=== PATIENT | male | born 1980 | race Caucasian/White ===

== ENCOUNTER → 2018-06-10 10:50 | Outpatient (CLI) | payer OTHER, SELFPAY ==
[2018-06-10 11:38] LABS: Add Manual Diff / Slide Review NO; Basophils Percent Auto 0.5 % (0-2); Eosinophils Percent Auto 1.5 % (2-4); Hematocrit 50.7 % (41-53); Hemoglobin 17.8 g/dL (13.5-17.5); Lymphocytes Percent Auto 35.6 % (25-40); Mean Corpuscular HGB Conc 35.2 % (30-36); Mean Corpuscular Volume 88.2 fL (80-100); Monocytes Percent Auto 5.3 % (3-14); Neutrophils Absolute Auto 6500 /uL (3000-5900); Neutrophils Percent Auto 57.1 % (50-75); Platelet Count 185 X10^3/uL (150-400); Red Blood Cell Count 5.75 X10^6/uL (4.5-5.9); Red Cell Distribution Width 13.6 % (11.6-14.8); White Blood Cell Count 11.4 X10^3/uL (4.5-11.0)
[2018-06-10 11:55] LABS: Alanine Aminotransferase 100 IU/L (21-72); Albumin 4.8 g/dL (3.5-5.0); Albumin Globulin Ratio 1.5 (1.0-2.8); Alkaline Phosphatase 50 U/L (38-126); Aspartate Aminotransferase 61 IU/L (17-59); BUN Creatinine Ratio 21.7 (6-22); Bilirubin Total 0.7 mg/dL (0.2-1.3); Blood Urea Nitrogen 13 mg/dL (9-20); Calcium 9.5 mg/dL (8.4-10.2); Carbon Dioxide 25 mmol/L (22-32); Chloride 102 mmol/L (98-107); Cholesterol 226 mg/dL (140-199); Estimated Glomerular Filt Rate > 60.0 mL/min (>60); Globulin 3.3 g/dL (1.7-4.1); Glucose 177 mg/dL (70-100); HDL Cholesterol 32 mg/dL (40-60); Sodium 141 mmol/L (137-145); Total Protein 8.1 g/dL (6.3-8.2)
[2018-06-10 11:59] LABS: Hemoglobin A1C% w Est Avg Glu 8.7 % (4.0-6.0)
[2018-06-10 12:11] LABS: HEMOLYSIS 67 (0-50)
[2018-06-10 12:12] LABS: Potassium 4.3 mmol/L (3.4-5.1); Triglycerides 540 mg/dL (35-150)
[2018-06-10 13:50] LABS: Thyroid Stimulating Hormone 3.47 uIU/mL (0.47-4.68)
[2018-06-10 14:56] LABS: Creatinine Urine Random 154.8 mg/dL
[2018-06-10 15:37] LABS: Microalbumi Creatinin Ratio Ur 489.6 ug/mg CR (<30); Microalbumin Urine Random 75.8 mg/dL (0-1.6)
== END ==
PROVIDERS: PCP Family Medicine; Visit Provider Family Medicine
DX: E11.9 Type 2 diabetes mellitus without complications (principal); E66.01 Morbid (severe) obesity due to excess calories; E78.1 Pure hyperglyceridemia
CPT/HCPCS: 36415; 80053; 80061; 82043; 82570; 83036; 84443; 85025

== ENCOUNTER 2018-12-17 04:53 | Emergency (ER) | payer OTHER, SELFPAY ==
[2018-12-17 04:59] VITALS: BP 146/98; PULSE 100; RESP 18; TEMP 36.5; O2SAT 96; BMI 35.9
--- NOTE | 2018-12-17 05:01 | DI.RAD.S_ITS ---
PROCEDURE: XR HAND RT MIN 3V INDICATIONS: Right ring finger pain after injury TECHNIQUE: 3 views of the right hand acquired. COMPARISON: [facility], , HAND 3V RIGHT, 01/29/2014, 0:42. FINDINGS: Bones: There is a minimally displaced fracture in the 4th distal phalanx. No dislocations. Carpal bones are normally aligned. No suspicious bony lesions. Soft tissues: No suspicious soft tissue calcifications. IMPRESSION: 1. Minimally displaced fracture of the 4th distal phalanx. Dictated by: Bhupendra Rosenberg M.D. on 12/17/2018 at 8:58 Approved by: Bhupendra Rosenberg M.D. on 12/17/2018 at 8:59
--- NOTE | 2018-12-17 05:02 | ED.UPPEXIN ---
HPI - Extremity Injury (Upper) General Chief Complaint: Extremity Injury, Upper Stated Complaint: right ring finger injury slammed in car door Time Seen by Provider: 12/17/18 05:01 Source: patient Mode of arrival: ambulatory Limitations: no limitations History of Present Illness HPI narrative: 38-year-old [id number]-[id number] male here for evaluation of a crush injury to his right ring finger. Patient states that he showed it in the car door just prior to arrival. No other injury reported from the event. No interventions prior to arrival. Related Data Previous Rx's Medication Instructions Recorded [ONE TOUCH ULTRA TEST] str TID #100 09/12/17 Glucose: Home Monitoring Kit kit QDAY #1 09/16/17 Lancet: Device ea #100 09/16/17 Test Strips - Freestyle str #90 09/16/17 metformin 1,000 mg PO BIDCC #180 tab 11/14/17 atomoxetine 25 mg capsule 25 mg PO DAILY #30 cap 06/12/18 glipizide 10 mg tablet 10 mg PO BID #30 tab 06/12/18 sildenafil (antihypertensive) 20 20 mg PO DAILY #30 tab 06/12/18 mg tablet hydroxyzine HCl 25 mg tablet 25 mg PO BEDTIME PRN #30 tab 09/05/18 pregabalin 200 mg capsule 200 mg PO TID #90 cap 09/30/18 Allergies Allergy/AdvReac Type Severity Reaction Status Date / Time No Known Allergies Allergy Uncoded 10/23/18 09:59 Review of Systems Constitutional Denies fatigue Musculoskeletal Denies tingling Comments: Right ring finger pain Integumentary/Breasts Comments: Bruising to the pad of the right ring finger Neurologic Denies tingling Endocrine Denies fatigue Hematologic/Lymphatic Denies easy bleeding and Denies easy bruising [facility] Medical History Chronic back pain (Chronic ~2009) Foot pain (Chronic ~2004) Sciatic nerve disease (Chronic ~2009) Sleep apnea (Chronic ~1999) Chicken pox (Resolved ~1986) Fractures (Resolved ~1991) Social History marital status: household members: spouse and children Smoking Status: Current every day smoker alcohol intake: current (ON OCCASION ) substance use type: does not use Exam Initial Vital Signs Initial Vital Signs: Vital Signs Temperature 97.7 F 12/17/18 04:59 Pulse Rate 100 H 12/17/18 04:59 Respiratory Rate 18 12/17/18 04:59 Blood Pressure 146/98 H 12/17/18 04:59 Pulse Oximetry 96 12/17/18 04:59 Const General: cooperative, well developed, well groomed and No acute distress Orientation: alert and awake Cardio Pulses: radial pulses present on the right Skin Other: Patient with a hematoma on the pad of his right index finger Neuro Other: Sensation intact to light touch right hand Extrem General: capillary refill normal Procedures Orthopedic Splinting/Casting Injury #1: Side: right Upper Extremity Injury Location: finger Upper Extremity Immobilizer: aluminum form splint Post splinting neuro exam: no change Post splinting vascular exam: no change Placed by: Nursing Course Orders Ordered: ED Orders 12/17/18 05:01 XR hand RT min 3V Stat Discontinued Medications Acetaminophen/Codeine Phosphate (Tylenol #3 Prepack) 1 bottle MISC SEEINSTR ONE Stop: 12/17/18 05:36 Last Admin: 12/17/18 05:41 Dose: 1 bottle Vital Signs - 8 hr 12/17/18 04:59 Temperature 97.7 F Pulse Rate 100 H Respiratory Rate 18 Blood Pressure 146/98 H Pulse Oximetry 96 MDM - Extremity Injury (Upper) Imaging Data Right hand x-ray: Attestation: I personally reviewed and interpreted this imaging study as follows: My impression: Distal right ring finger phalanx fracture MDM Narrative Medical decision making narrative: Patient is neurovascularly intact. Fracture on the x-ray. He is placed in a splint. He was given care instructions return precautions. He expressed understanding and agreement with plan Discharge Plan Departure Patient Disposition: Home Clinical Impression: Finger fracture, right Qualifiers: Encounter type: initial encounter Finger: ring finger Fracture type: closed Phalanx: distal Fracture alignment: nondisplaced Qualified Code(s): S62.664A - Nondisplaced fracture of distal phalanx of right ring finger, initial encounter for closed fracture Discharge Date/Time: 12/17/18 05:40 Interventions: ED Discharge Assessment Last Done: 12/17/18 05:40 Instructions: DI for Finger Fracture Activity Restrictions/Additional Instructions: He did break the very tip of your ring finger. I recommend that you keep the splint on for the next 4 weeks. After that you can take it off. Contact her primary care provider for follow-up. Return to the emergency department for any new or worsening symptoms Prescriptions: No Action [ONE TOUCH ULTRA TEST] TID Qty: 100 RF: 11 Glucose: Home Monitoring Kit QDAY Qty: 1 RF: 0 Lancet: Device Qty: 100 RF: 0 Test Strips - Freestyle Qty: 90 RF: 0 metformin 1,000 MG tablet 1,000 mg PO BIDCC Qty: 180 RF: 3 pregabalin 200 mg capsule 200 mg PO TID Qty: 90 RF: 3 hydroxyzine HCl 25 mg tablet 25 mg PO BEDTIME PRN (Reason: insomnia) Qty: 30 RF: 0 glipizide 10 mg tablet 10 mg PO BID Qty: 30 RF: 3 atomoxetine [Strattera] 25 mg capsule 25 mg PO DAILY Qty: 30 RF: 0 sildenafil (antihypertensive) [Revatio] 20 mg tablet 20 mg PO DAILY Qty: 30 RF: 1 Referrals: Betito Carlton MD [Primary Care Provider] -
[2018-12-17] MEDS: CODEINE/APAP 30/300 PREPACK 1 BOTTLE MISC (05:41)
== END 2018-12-17 05:40 | disposition home or self-care (01) ==
PROVIDERS: Emergency Provider Emergency Medicine; PCP Family Medicine
DX: S62.664A Nondisplaced fracture of distal phalanx of right ring finger, initial encounter for closed fracture (principal); W23.1XXA Caught, crushed, jammed, or pinched between stationary objects, initial encounter
CPT/HCPCS: 29130; 73130; 99282; 99283

== ENCOUNTER → 2019-01-07 11:07 | Outpatient (CLI) | payer OTHER, SELFPAY ==
--- NOTE | 2019-01-07 11:11 | DI.RAD.S_ITS ---
PROCEDURE: XR HAND RT MIN 3V INDICATIONS: follow up fx R ring finger TECHNIQUE: 3 views of the hand(s) acquired. COMPARISON: [facility], CR, XR HAND RT MIN 3V, 12/17/2018, 5:21. FINDINGS: Bones: There is an oblique fracture of the fourth distal phalanx with minimal displacement. The alignment is stable. Carpal bones are normally aligned. No suspicious bony lesions. Soft tissues: No suspicious soft tissue calcifications. IMPRESSION: Minimally displaced oblique fracture of the fourth distal phalanx with stable alignment. Dictated by: Liza Rubi M.D. on 01/07/2019 at 12:01 Approved by: Liza Rubi M.D. on 01/07/2019 at 12:03
== END ==
PROVIDERS: PCP Family Medicine; Visit Provider Family Medicine
DX: S62.634A Displaced fracture of distal phalanx of right ring finger, initial encounter for closed fracture (principal); X58.XXXA Exposure to other specified factors, initial encounter
CPT/HCPCS: 73130

== ENCOUNTER → 2019-06-11 15:49 | Outpatient (CLI) | payer OTHER, SELFPAY ==
[2019-06-11 16:15] LABS: Add Manual Diff / Slide Review NO; Basophils Absolute Auto 100 /uL (0-100); Basophils Percent Auto 0.7 % (0-2); Eosinophils Absolute Auto 200 /uL (0-450); Eosinophils Percent Auto 1.9 % (2-4); Hematocrit 53.4 % (41-53); Hemoglobin 19.1 g/dL (13.5-17.5); Lymphocytes Absolute Auto 3600 /uL (1100-4500); Lymphocytes Percent Auto 34.2 % (25-40); Mean Corpuscular HGB Conc 35.8 % (30-36); Mean Corpuscular Hemoglobin 30.9 PG (26-34); Mean Corpuscular Volume 86.4 fL (80-100); Monocytes Absolute Auto 600 /uL (0-900); Monocytes Percent Auto 5.7 % (3-14); Neutrophils Absolute Auto 6100 /uL (1500-7000); Neutrophils Percent Auto 57.5 % (50-75); Platelet Count 174 X10^3/uL (150-400); Red Blood Cell Count 6.18 X10^6/uL (4.5-5.9); Red Cell Distribution Width 13.3 % (11.6-14.8); White Blood Cell Count 10.6 X10^3/uL (4.5-11.0)
[2019-06-11 16:38] LABS: Hemoglobin A1C% w Est Avg Glu 11.7 % (4.0-6.0)
[2019-06-11 16:45] LABS: Creatinine Urine Random 52.9 mg/dL
[2019-06-11 17:03] LABS: Alanine Aminotransferase 42 IU/L (<50); Albumin 4.6 g/dL (3.5-5.0); Albumin Globulin Ratio 1.6 (1.0-2.8); Alkaline Phosphatase 82 U/L (38-126); Aspartate Aminotransferase 25 IU/L (17-59); BUN Creatinine Ratio 18.3 (6-22); Bilirubin Total 0.8 mg/dL (0.2-1.3); Blood Urea Nitrogen 11 mg/dL (9-20); Calcium 9.1 mg/dL (8.4-10.2); Carbon Dioxide 23 mmol/L (22-32); Chloride 100 mmol/L (98-107); Cholesterol 272 mg/dL (140-199); Estimated Glomerular Filt Rate > 60.0 mL/min (>60); Globulin 2.9 g/dL (1.7-4.1); Glucose 318 mg/dL (70-100); HDL Cholesterol 30 mg/dL (40-60); Potassium 4.2 mmol/L (3.4-5.1); Sodium 135 mmol/L (137-145); Total Protein 7.5 g/dL (6.3-8.2)
[2019-06-11 17:11] LABS: HEMOLYSIS 21 (0-50)
[2019-06-11 17:13] LABS: Triglycerides 1493 mg/dL (35-150)
[2019-06-11 17:19] LABS: Microalbumi Creatinin Ratio Ur 1298.6 ug/mg CR (<30); Microalbumin Urine Random 68.7 mg/dL (0-1.6)
[2019-06-11 17:35] LABS: TSH w/ Reflex to FT4 5.56 uIU/mL (0.47-4.68)
[2019-06-11 18:03] LABS: Free T4, Direct Thyroxine 1.26 ng/dL (0.78-2.19)
== END ==
PROVIDERS: PCP Family Medicine; Visit Provider Family Medicine
DX: E11.9 Type 2 diabetes mellitus without complications (principal); E66.01 Morbid (severe) obesity due to excess calories; E78.1 Pure hyperglyceridemia
CPT/HCPCS: 36415; 80053; 80061; 82043; 82570; 83036; 84439; 84443; 85025

== ENCOUNTER → 2019-10-08 11:42 | Outpatient (CLI) | payer OTHER, SELFPAY ==
[2019-10-08 13:00] LABS: Add Manual Diff / Slide Review NO; Basophils Absolute Auto 100 /uL (0-100); Basophils Percent Auto 0.4 % (0-2); Eosinophils Absolute Auto 300 /uL (0-450); Eosinophils Percent Auto 2.1 % (2-4); Hematocrit 54.9 % (41-53); Lymphocytes Absolute Auto 3800 /uL (1100-4500); Lymphocytes Percent Auto 29.9 % (25-40); Mean Corpuscular HGB Conc 34.7 % (30-36); Mean Corpuscular Hemoglobin 30.7 PG (26-34); Mean Corpuscular Volume 88.6 fL (80-100); Monocytes Absolute Auto 800 /uL (0-900); Monocytes Percent Auto 6.2 % (3-14); Neutrophils Absolute Auto 7700 /uL (1500-7000); Neutrophils Percent Auto 61.4 % (50-75); Platelet Count 191 X10^3/uL (150-400); Red Cell Distribution Width 13.2 % (11.6-14.8); White Blood Cell Count 12.6 X10^3/uL (4.5-11.0)
[2019-10-08 13:30] LABS: Hemoglobin A1C% w Est Avg Glu 9.4 % (4.0-6.0)
[2019-10-08 14:42] LABS: TSH w/ Reflex to FT4 4.93 uIU/mL (0.47-4.68)
[2019-10-08 15:10] LABS: Free T4, Direct Thyroxine 1.22 ng/dL (0.78-2.19)
== END ==
PROVIDERS: PCP Family Medicine; Referring Provider Family Medicine; Visit Provider Family Medicine
DX: E11.9 Type 2 diabetes mellitus without complications (principal)
CPT/HCPCS: 36415; 83036; 84439; 84443; 85025

== ENCOUNTER → 2020-05-16 12:18 | Outpatient (CLI) | payer OTHER, SELFPAY ==
--- NOTE | 2020-05-16 12:20 | DI.RAD.S_ITS ---
PROCEDURE: XR HIP W PEL IF DONE LT MIN 4V INDICATIONS: bilateral hip TECHNIQUE: AP pelvis with lateral view(s) of the bilateral hip(s). COMPARISON: None. FINDINGS: Bones: No fractures or dislocations. Pelvic ring appears intact. No suspicious bony lesions. There is a symmetric mild to moderate degree of degenerative hip joint osteoarthritis as indicated by narrowing of the hip interspace bilaterally. Soft tissues: The visualized bowel gas pattern is normal. No suspicious soft tissue calcifications. IMPRESSION: Symmetric [id number]-[id number] hip joint osteoarthritis. No trauma Dictated by: Alok Jo M.D. on 05/16/2020 at 13:11 Approved by: Alok Jo M.D. on 05/16/2020 at 13:12
== END ==
PROVIDERS: PCP Family Medicine; Referring Provider Family Medicine; Visit Provider Family Medicine
DX: M25.551 Pain in right hip (principal); M25.552 Pain in left hip; M16.0 Bilateral primary osteoarthritis of hip
CPT/HCPCS: 73522

== ENCOUNTER → 2020-05-17 13:29 | Outpatient (CLI) | payer OTHER, SELFPAY ==
[2020-05-18 14:40] LABS: COVID19 Sendout Not Detected (Not Detect)
== END ==
PROVIDERS: PCP Family Medicine; Visit Provider Nurse Practitioner
DX: Z11.59 Encounter for screening for other viral diseases (principal)
CPT/HCPCS: 87635

== ENCOUNTER → 2021-05-26 14:12 | Outpatient (CLI) | payer SELFPAY ==
--- NOTE | 2021-05-26 14:15 | DI.RAD.S_ITS ---
PROCEDURE: XR LUMBAR SPINE MIN 4V INDICATIONS: BACK PAIN TECHNIQUE: 5 views of the lumbar spine were acquired, including bilateral oblique views. COMPARISON: [facility], , L-SPINE 2-3 VIEWS, 11/28/2014, 23:40. FINDINGS: Bones: No acute fracture. Multilevel degenerative endplate sclerosis and spurring. Diffuse facet arthropathy. Trace retrolisthesis of L2 on L3 and L3 on L4. Diffuse mild disc space narrowing. Soft tissues: Overlying bowel gas pattern is normal. No suspicious soft tissue calcifications. Oblique images: No pars defects. IMPRESSION: Mild lumbar spondylosis and facet arthropathy Dictated by: Esau Muhammad M.D. on 05/26/2021 at 16:51 Approved by: Esau Muhammad M.D. on 05/26/2021 at 16:52
== END ==
PROVIDERS: PCP Family Medicine; Referring Provider Physical Medicine & Rehabilitation; Visit Provider Physical Medicine & Rehabilitation
DX: M47.26 Other spondylosis with radiculopathy, lumbar region (principal); G57.93 Unspecified mononeuropathy of bilateral lower limbs; E66.01 Morbid (severe) obesity due to excess calories; F17.200 Nicotine dependence, unspecified, uncomplicated; Z68.34 Body mass index [BMI] 34.0-34.9, adult; Z87.828 Personal history of other (healed) physical injury and trauma
CPT/HCPCS: 72110; 99214

== ENCOUNTER 2021-07-16 19:46 | Emergency (ER) | payer OTHER, SELFPAY ==
[2021-07-16 19:52] VITALS: BP 141/87; PULSE 89; RESP 18; TEMP 36.6; O2SAT 98; BMI 33.7
--- NOTE | 2021-07-16 20:29 | PC.NURSE ---
Educated pt on plan of care and he stated he works in [place] and needs to get to work by 2200 or he will be fired. Informed pt timing of various ordered tests and pt ultimately decided he would like to leave for work. [facility] form read to pt and signed by pt, he denies further questions.
[2021-07-16 20:43] LABS: COVID19 -Nasal RAPID Negative (Negative)
== END 2021-07-16 20:30 | disposition left against medical advice (07) ==
PROVIDERS: Emergency Provider Emergency Medicine; PCP Family Medicine
DX: Z53.21 Procedure and treatment not carried out due to patient leaving prior to being seen by health care provider (principal); Z20.822 Contact with and (suspected) exposure to COVID-19
CPT/HCPCS: 82962; 87635; 99281; C9803

== ENCOUNTER → 2021-07-31 07:18 | Outpatient (CLI) | payer OTHER, SELFPAY ==
[2021-07-31 09:19] LABS: Creatinine Urine Random 200.2 mg/dL
[2021-07-31 09:25] LABS: Microalbumi Creatinin Ratio Ur 66.4 ug/mg CR (<30); Microalbumin Urine Random 13.3 mg/dL (0-1.6)
[2021-07-31 09:27] LABS: Hemoglobin A1C% w Est Avg Glu 6.7 % (4.0-6.0)
[2021-07-31 09:28] LABS: Add Manual Diff / Slide Review NO; Basophils Absolute Auto 100 /uL (0-100); Basophils Percent Auto 0.3 % (0-2); Eosinophils Absolute Auto 100 /uL (0-450); Eosinophils Percent Auto 0.5 % (2-4); Hematocrit 51.8 % (41-53); Lymphocytes Absolute Auto 4300 /uL (1100-4500); Lymphocytes Percent Auto 25.7 % (25-40); Mean Corpuscular HGB Conc 34.8 % (30-36); Mean Corpuscular Hemoglobin 30.5 PG (26-34); Mean Corpuscular Volume 87.7 fL (80-100); Monocytes Absolute Auto 900 /uL (0-900); Monocytes Percent Auto 5.4 % (3-14); Neutrophils Absolute Auto 11300 /uL (1500-7000); Neutrophils Percent Auto 68.1 % (50-75); Platelet Count 237 X10^3/uL (150-400); Red Cell Distribution Width 13.7 % (11.6-14.8); White Blood Cell Count 16.6 X10^3/uL (4.5-11.0)
[2021-07-31 09:34] LABS: Alanine Aminotransferase 50 IU/L (<50); Albumin 4.9 g/dL (3.5-5.0); Albumin Globulin Ratio 1.5 (1.0-2.8); Alkaline Phosphatase 51 U/L (38-126); Aspartate Aminotransferase 36 IU/L (17-59); BUN Creatinine Ratio 19.1 (6-22); Bilirubin Total 0.8 mg/dL (0.2-1.3); Blood Urea Nitrogen 18 mg/dL (9-20); Calcium 10.4 mg/dL (8.4-10.2); Carbon Dioxide 30 mmol/L (22-32); Chloride 98 mmol/L (98-107); Cholesterol 244 mg/dL (140-199); Estimated Glomerular Filt Rate > 60.0 mL/min (>60); Globulin 3.3 g/dL (1.7-4.1); Glucose 88 mg/dL (70-100); HDL Cholesterol 45 mg/dL (40-60); HEMOLYSIS < 15 (0-50); LDL Cholesterol Calculated 128 mg/dL (<100); Potassium 4.4 mmol/L (3.4-5.1); Sodium 137 mmol/L (137-145); Total Protein 8.2 g/dL (6.3-8.2); Triglycerides 357 mg/dL (35-150)
== END ==
PROVIDERS: PCP Family Medicine; Referring Provider Family Medicine; Visit Provider Family Medicine
DX: D75.1 Secondary polycythemia (principal); E11.9 Type 2 diabetes mellitus without complications; E66.01 Morbid (severe) obesity due to excess calories; E78.1 Pure hyperglyceridemia; F17.200 Nicotine dependence, unspecified, uncomplicated
CPT/HCPCS: 36415; 80053; 80061; 82043; 82570; 83036; 84443; 85025

== ENCOUNTER → 2022-02-20 17:04 | Outpatient (CLI) | payer OTHER, SELFPAY ==
[2022-02-20 17:31] LABS: Add Manual Diff / Slide Review NO; Basophils Absolute Auto 0 /uL (0-100); Basophils Percent Auto 0.3 % (0-2); Eosinophils Absolute Auto 200 /uL (0-450); Eosinophils Percent Auto 1.6 % (2-4); Hematocrit 48.5 % (41-53); Lymphocytes Absolute Auto 3800 /uL (1100-4500); Lymphocytes Percent Auto 32.7 % (25-40); Mean Corpuscular HGB Conc 35.1 % (30-36); Mean Corpuscular Hemoglobin 31.1 PG (26-34); Mean Corpuscular Volume 88.6 fL (80-100); Monocytes Absolute Auto 700 /uL (0-900); Monocytes Percent Auto 6.4 % (3-14); Neutrophils Absolute Auto 6900 /uL (1500-7000); Platelet Count 202 X10^3/uL (150-400); Red Blood Cell Count 5.47 X10^6/uL (4.5-5.9); Red Cell Distribution Width 13.3 % (11.6-14.8); White Blood Cell Count 11.7 X10^3/uL (4.5-11.0)
[2022-02-20 17:41] LABS: Alanine Aminotransferase 60 IU/L (<50); Albumin 4.7 g/dL (3.5-5.0); Albumin Globulin Ratio 1.6 (1.0-2.8); Alkaline Phosphatase 58 U/L (38-126); Aspartate Aminotransferase 33 IU/L (17-59); BUN Creatinine Ratio 14.3 (6-22); Bilirubin Total 0.6 mg/dL (0.2-1.3); Blood Urea Nitrogen 10 mg/dL (9-20); Calcium 9.6 mg/dL (8.4-10.2); Carbon Dioxide 25 mmol/L (22-32); Chloride 101 mmol/L (98-107); Cholesterol 172 mg/dL (140-199); Estimated Glomerular Filt Rate > 60 mL/min (>60); Glucose 239 mg/dL (70-100); HDL Cholesterol 35 mg/dL (40-60); HEMOLYSIS < 15 (0-50); LDL Cholesterol Calculated 79 mg/dL (<100); Potassium 4.2 mmol/L (3.4-5.1); Sodium 134 mmol/L (137-145); Total Protein 7.7 g/dL (6.3-8.2); Triglycerides 291 mg/dL (35-150)
[2022-02-20 18:04] LABS: Creatinine Urine Random 125.6 mg/dL
[2022-02-20 19:06] LABS: Microalbumi Creatinin Ratio Ur 357.4 ug/mg CR (<30); Microalbumin Urine Random 44.9 mg/dL (0-1.6)
== END ==
PROVIDERS: PCP Family Medicine; Referring Provider Physician Assistant; Visit Provider Physician Assistant
DX: E11.9 Type 2 diabetes mellitus without complications (principal); E66.01 Morbid (severe) obesity due to excess calories; E78.1 Pure hyperglyceridemia; D75.1 Secondary polycythemia
CPT/HCPCS: 36415; 80053; 80061; 82043; 82570; 85025

== ENCOUNTER → 2022-09-12 10:45 | Outpatient (CLI) | payer OTHER, SELFPAY ==
[2022-09-12 11:31] LABS: Hemoglobin A1C% w Est Avg Glu 8.2 % (4.0-6.0)
[2022-09-12 11:43] LABS: BUN Creatinine Ratio 22.6 (6-22); Blood Urea Nitrogen 14 mg/dL (9-20); Calcium 9.4 mg/dL (8.4-10.2); Carbon Dioxide 21 mmol/L (22-32); Chloride 104 mmol/L (98-107); Estimated Glomerular Filt Rate > 60 mL/min (>60); Glucose 278 mg/dL (70-100); HEMOLYSIS < 15 (0-50); Potassium 4.1 mmol/L (3.4-5.1); Sodium 136 mmol/L (137-145)
[2022-09-12 11:52] LABS: Creatinine Urine Random 30.8 mg/dL
[2022-09-12 11:57] LABS: Microalbumi Creatinin Ratio Ur 181.8 ug/mg CR (<30); Microalbumin Urine Random 5.6 mg/dL (0-1.6)
== END ==
PROVIDERS: PCP Family Medicine; Referring Provider Physician Assistant; Visit Provider Physician Assistant
DX: E11.65 Type 2 diabetes mellitus with hyperglycemia (principal); I10 Essential (primary) hypertension
CPT/HCPCS: 36415; 80048; 82043; 82570; 83036

== ENCOUNTER → 2023-03-07 12:13 | Outpatient (CLI) | payer MEDICAID, SELFPAY ==
--- NOTE | 2023-03-07 12:17 | DI.RAD.S_ITS ---
PROCEDURE: XR LUMBAR SPINE 2-3V INDICATIONS: LBP with L sided sciatica x 6 months getting worse TECHNIQUE: 3 views of the lumbar spine were acquired. COMPARISON: None. FINDINGS: Bones: 5 [id number] vertebrae are present. There is normal bony alignment. No vertebral body compression fractures. No suspicious bony lesions. Mild degenerative disc changes throughout the lumbar spine. Mild L3-L4, L4-L5 and L5-S1 facet arthropathy. Soft tissues: Overlying bowel gas pattern is normal. No suspicious soft tissue calcifications. IMPRESSION: 1. Multilevel degenerative disc disease. 2. Multilevel facet arthropathy. 3. No fracture. No acute osseous lesion. If symptoms and/or clinical suspicion for pathology persists, evaluation with MRI should be considered for further assessment. Dictated by: Smita Lemons MD, PhD on 03/07/2023 at 13:18 Approved by: Smita Lemons MD, PhD on 03/07/2023 at 13:18
--- NOTE | 2023-03-07 12:17 | DI.RAD.S_ITS ---
PROCEDURE: XR SHOULDER RT MIN 2V INDICATIONS: Right shoulder pain x 3 months tender at AC joint TECHNIQUE: 3 views of the shoulder were acquired. COMPARISON: None. FINDINGS: Bones: No fractures or dislocations. No suspicious bony lesions. Visualized ribs appear intact. Soft tissues: No suspicious soft tissue calcifications. IMPRESSION: No fracture. No osseous lesion. If symptoms and/or clinical suspicion for pathology persists, further assessment with repeat radiographs (7-10 days) or advanced imaging (e.g. CT, MRI or bone scan) should be considered. Dictated by: Smita Lemons MD, PhD on 03/07/2023 at 13:18 Approved by: Smita Lemons MD, PhD on 03/07/2023 at 13:19
[2023-03-07 13:45] LABS: Alanine Aminotransferase 44 IU/L (<50); Albumin 4.7 g/dL (3.5-5.0); Albumin Globulin Ratio 1.5 (1.0-2.8); Alkaline Phosphatase 86 U/L (38-126); Aspartate Aminotransferase 30 IU/L (17-59); BUN Creatinine Ratio 18.5 (6-22); Bilirubin Total 0.8 mg/dL (0.2-1.3); Blood Urea Nitrogen 12 mg/dL (9-20); Calcium 10.1 mg/dL (8.4-10.2); Carbon Dioxide 24 mmol/L (22-32); Chloride 100 mmol/L (98-107); Cholesterol 208 mg/dL (140-199); Estimated Glomerular Filt Rate > 60 mL/min (>60); Globulin 3.1 g/dL (1.7-4.1); Glucose 190 mg/dL (70-100); HDL Cholesterol 33 mg/dL (40-60); HEMOLYSIS < 15 (0-50); Potassium 4.4 mmol/L (3.4-5.1); Sodium 136 mmol/L (137-145); Total Protein 7.8 g/dL (6.3-8.2)
[2023-03-07 13:59] LABS: Triglycerides 898 mg/dL (35-150)
[2023-03-07 14:10] LABS: TSH w/ Reflex to FT4 3.46 uIU/mL (0.47-4.68)
[2023-03-07 15:29] LABS: Microalbumin Urine Random 5.4 mg/dL (0-1.6)
[2023-03-07 15:36] LABS: Creatinine Urine Random 38.5 mg/dL; Microalbumi Creatinin Ratio Ur 140.2 ug/mg CR (<30)
== END ==
PROVIDERS: PCP Family Medicine; Referring Provider Physician Assistant; Visit Provider Physician Assistant
DX: M51.16 Intervertebral disc disorders with radiculopathy, lumbar region; M47.26 Other spondylosis with radiculopathy, lumbar region; M47.27 Other spondylosis with radiculopathy, lumbosacral region; M25.511 Pain in right shoulder; E11.29 Type 2 diabetes mellitus with other diabetic kidney complication; E11.65 Type 2 diabetes mellitus with hyperglycemia; E78.1 Pure hyperglyceridemia; I10 Essential (primary) hypertension; R80.9 Proteinuria, unspecified
CPT/HCPCS: 36415; 72100; 73030; 80053; 80061; 82043; 82570; 83036; 84443

== ENCOUNTER → 2023-05-09 09:47 | Outpatient (CLI) | payer MEDICAID, SELFPAY ==
[2023-05-09 10:27] LABS: Hemoglobin A1C% w Est Avg Glu 7.6 % (4.0-6.0)
== END ==
PROVIDERS: PCP Family Medicine; Referring Provider Family Medicine; Visit Provider Family Medicine
DX: E11.65 Type 2 diabetes mellitus with hyperglycemia (principal)
CPT/HCPCS: 36415; 83036

== ENCOUNTER → 2024-09-15 11:16 | Outpatient (CLI) | payer OTHER, SELFPAY ==
--- NOTE | 2024-09-15 11:19 | DI.RAD.S_ITS ---
PROCEDURE: XR SHOULDER LT MIN 2V INDICATIONS: swelling/pain X 2 mos TECHNIQUE: Three views of the left shoulder were acquired. COMPARISON: [facility], CR, XR SHOULDER RT MIN 2V, 03/07/2023, 12:31. FINDINGS: Bones: There are no osseous abnormalities. Acromioclavicular and glenohumeral joints: Normal in width and alignment without arthritic change Soft tissues: No soft tissue swelling, calcification or mass. IMPRESSION: Normal shoulder Dictated by: Wong Vasquez M.D. on 09/16/2024 at 11:09 Approved by: Wong Vasquez M.D. on 09/16/2024 at 11:11
[2024-09-15 13:33] LABS: Add Manual Diff / Slide Review NO; Basophils Absolute Auto 100 /uL (0-100); Basophils Percent Auto 0.6 % (0-2); Eosinophils Absolute Auto 200 /uL (0-450); Eosinophils Percent Auto 1.9 % (2-4); Hemoglobin 19.2 g/dL (13.5-17.5); Lymphocytes Absolute Auto 3000 /uL (1100-4500); Lymphocytes Percent Auto 26.2 % (25-40); Mean Corpuscular HGB Conc 34.9 % (30-36); Mean Corpuscular Hemoglobin 30.7 PG (26-34); Mean Corpuscular Volume 87.8 fL (80-100); Monocytes Absolute Auto 600 /uL (0-900); Monocytes Percent Auto 5.7 % (3-14); Neutrophils Absolute Auto 7500 /uL (1500-7000); Neutrophils Percent Auto 65.6 % (50-75); Platelet Count 189 X10^3/uL (150-400); Red Blood Cell Count 6.26 X10^6/uL (4.5-5.9); Red Cell Distribution Width 13.2 % (11.6-14.8); White Blood Cell Count 11.4 X10^3/uL (4.5-11.0)
[2024-09-15 13:48] LABS: Hemoglobin A1C% w Est Avg Glu 5.5 % (4.0-6.0)
[2024-09-15 14:04] LABS: Creatinine Urine Random 114.45 mg/dL
[2024-09-15 14:05] LABS: Alanine Aminotransferase 53 IU/L (<50); Albumin 5.1 g/dL (3.5-5.0); Albumin Globulin Ratio 1.7 (1.0-2.8); Alkaline Phosphatase 65 U/L (38-126); Aspartate Aminotransferase 36 IU/L (17-59); BUN Creatinine Ratio 19.7 (6-22); Bilirubin Total 0.8 mg/dL (0.2-1.3); Blood Urea Nitrogen 15 mg/dL (9-20); Calcium 9.9 mg/dL (8.4-10.2); Carbon Dioxide 26 mmol/L (22-32); Chloride 105 mmol/L (98-107); Cholesterol 157 mg/dL (140-199); Estimated Glomerular Filt Rate > 60 mL/min (>60); Glucose 107 mg/dL (70-100); HDL Cholesterol 37 mg/dL (40-60); HEMOLYSIS < 15 (0-50); LDL Cholesterol Calculated 81 mg/dL (<100); Potassium 5.2 mmol/L (3.4-5.1); Sodium 143 mmol/L (137-145); Total Protein 8.1 g/dL (6.3-8.2); Triglycerides 193 mg/dL (35-150)
[2024-09-15 14:08] LABS: Microalbumin Urine Random 9.1 mg/dL (0-1.6)
[2024-09-15 14:34] LABS: TSH w/ Reflex to FT4 3.41 uIU/mL (0.47-4.68)
== END ==
LOC: LAB 11:18
PROVIDERS: PCP Family Medicine; Referring Provider Physician Assistant; Visit Provider Physician Assistant
DX: M25.512 Pain in left shoulder (principal); M25.412 Effusion, left shoulder; E11.65 Type 2 diabetes mellitus with hyperglycemia; R80.9 Proteinuria, unspecified; I10 Essential (primary) hypertension; E11.29 Type 2 diabetes mellitus with other diabetic kidney complication; E78.1 Pure hyperglyceridemia
CPT/HCPCS: 36415; 73030; 80053; 80061; 82043; 82570; 83036; 84443; 85025

== ENCOUNTER → 2024-09-16 08:30 | Outpatient (CLI) | payer MEDICAID, SELFPAY ==
--- NOTE | 2024-09-16 08:31 | DI.US.S_ITS ---
PROCEDURE: US EXTREMITY NONVASC UPPER LT INDICATIONS: L shoulder pain, swelling TECHNIQUE: Real-time scanning was performed of the left shoulder , with image documentation. COMPARISON: None. FINDINGS AND IMPRESSION: At the left supraspinatus, there is a probable partial-thickness tear along the interstitial and articular fibers. Background moderate tendinopathy. This sonographic evaluation is limited and MRI is suggested to further evaluate. Dictated by: Thom Kelley M.D. on 09/16/2024 at 16:11 Approved by: Thom Kelley M.D. on 09/16/2024 at 16:13
== END ==
PROVIDERS: PCP Family Medicine; Referring Provider Physician Assistant; Visit Provider Physician Assistant
DX: M25.512 Pain in left shoulder (principal); M25.412 Effusion, left shoulder
CPT/HCPCS: 76882

== ENCOUNTER → 2025-07-01 12:06 | Outpatient (CLI) | payer OTHER, SELFPAY ==
[2025-07-01 12:47] LABS: Add Manual Diff / Slide Review NO; Hematocrit 55.4 % (41-53); Hemoglobin 19.4 g/dL (13.5-17.5); Lymphocytes Absolute Auto 2900 /uL (1100-4500); Mean Corpuscular HGB Conc 34.9 % (30-36); Mean Corpuscular Hemoglobin 30.6 PG (26-34); Mean Corpuscular Volume 87.6 fL (80-100); Platelet Count 185 X10^3/uL (150-400)
[2025-07-01 13:05] LABS: Alanine Aminotransferase 65 IU/L (<50); Albumin 5.1 g/dL (3.5-5.0); Albumin Globulin Ratio 1.6 (1.0-2.8); Alkaline Phosphatase 78 U/L (38-126); Blood Urea Nitrogen 13 mg/dL (9-20); Calcium 9.8 mg/dL (8.4-10.2); Carbon Dioxide 26 mmol/L (22-32); Chloride 104 mmol/L (98-107); Cholesterol 209 mg/dL (140-199); Estimated Glomerular Filt Rate > 60 mL/min (>60); Globulin 3.2 g/dL (1.7-4.1); Glucose 210 mg/dL (70-99); HDL Cholesterol 36 mg/dL (40-60); HEMOLYSIS < 15 (0-50); Potassium 4.7 mmol/L (3.4-5.1); Sodium 141 mmol/L (137-145); Total Protein 8.3 g/dL (6.3-8.2); Triglycerides 474 mg/dL (35-150)
[2025-07-01 13:10] LABS: RBC Morphology Normal Morphology
[2025-07-01 13:33] LABS: TSH w/ Reflex to FT4 3.39 uIU/mL (0.47-4.68)
[2025-07-01 14:51] LABS: Microalbumi Creatinin Ratio Ur 364.0 ug/mg CR (<30)
[2025-07-01 19:51] LABS: Hemoglobin A1C% w Est Avg Glu 8.3 % (4.0-6.0)
== END ==
PROVIDERS: Physician Assistant; PCP Family Medicine; Referring Provider Family Medicine; Visit Provider Family Medicine
DX: I10 Essential (primary) hypertension (principal); E78.1 Pure hyperglyceridemia; E11.65 Type 2 diabetes mellitus with hyperglycemia
CPT/HCPCS: 36415; 80053; 80061; 82043; 82570; 83036; 84443; 85025